=== PATIENT | female | born 1965 | race Caucasian/White ===

== ENCOUNTER → 2020-04-02 15:03 | Outpatient (CLI) | payer BC, SELFPAY ==
--- NOTE | ~2020-04-02 | MR_ITS ---
EXAMINATION: MR cervical spine wo con EXAM DATE: 04/02/2020 15:50 INDICATION: Cervical radiculopathy. Neck pain, bilateral arm pain, right arm numbness. States histo ry of fall in February 2019. TECHNIQUE: Multi-sequential, multiplanar MR images of the cervical spine were obtained without contra st. Axial T2, axial T2 MERGE sequence. Sagittal T1, T2, T2 fat saturation images also obtained. Com parison is made to prior examination from 11/10/2018. FINDINGS: Mild disc disease from C3 through C6. The vertebral bodies are aligned in the AP dimensio n. The spinal cord signal intensity and intrinsic morphology is normal. Cervicomedullary junction is normal in appearance. Hemangioma within the T4 vertebral body. There are no suspicious marrow signal abnormalities. Paraspinal soft tissue is unremarkable. Level by level evaluation: C2-C3: Disc does not extend beyond the endplate margin. Uncovertebral joint arthropathy: None. Facet joint arthropathy: Minimal. Neural foraminal stenosis: No stenosis. Central canal stenosis: No stenosis. C3-C4: There is a mild diffuse disc bulge. Uncovertebral joint arthropathy: Mild to moderate bilateral. Facet joint arthropathy: Mild to moderate bilateral. Neural foraminal stenosis: Mild bilateral. Central canal stenosis: Mild. C4-C5: There is a minimal diffuse disc bulge. Uncovertebral joint arthropathy: Mild bilateral. Facet joint arthropathy: Mild to moderate bilateral. Neural foraminal stenosis: No stenosis. Central canal stenosis: No stenosis. C5-C6: Disc does not extend beyond the endplate margin. Uncovertebral joint arthropathy: Minimal bilateral. Facet joint arthropathy: Moderate right, mild to moderate left. Neural foraminal stenosis: No stenosis. Central canal stenosis: No stenosis. C6-C7: Disc does not extend beyond the endplate margin. Uncovertebral joint arthropathy: Mild bilateral. Facet joint arthropathy: Mild to moderate bilateral. Neural foraminal stenosis: No stenosis. Central canal stenosis: No stenosis. C7-T1: Disc does not extend beyond the endplate margin. Uncovertebral joint arthropathy: None. Facet joint arthropathy: Mild to moderate left, mild right. Neural foraminal stenosis: No stenosis. Central canal stenosis: No stenosis. No appreciable interval change compared to prior study. IMPRESSION: 1. Overall mild cervical spondylosis unchanged. Reviewed, dictated and finalized at location B.
== END ==
PROVIDERS: PCP Family Medicine
DX: M47.22 Other spondylosis with radiculopathy, cervical region (principal)
CPT/HCPCS: 72141

== ENCOUNTER → 2020-08-25 15:11 | Outpatient (CLI) | payer BC, SELFPAY ==
--- NOTE | ~2020-08-25 | XR_ITS ---
XR lumbar spine 2-3V DATE: 08/25/2020 15:35 INDICATION: Low back pain TECHNIQUE: AP, lateral, coned lateral lumbosacral views COMPARISON: 03/28/2017 lumbar spine 07/23/2017 MRI lumbar spine FINDINGS: Diffuse osteopenia. Normal alignment of the lumbar spine. No fracture or bone destruction or spondylolisthesis. The inclu ded lower thoracic and lumbar pedicles are intact. Lumbar and lumbosacral interspaces are relatively preserved; there is minimal degenerative spurring a t L3-4. The sacroiliac joints appear normal. Abdominal aortic calcification. There is a prominent amount of fecal material within the colon. No bowel obstruction is evident. IMPRESSION: Diffuse osteopenia Minimal degenerative change the lumbar spine Reviewed, dictated and finalized at location B. NDS AND NURSERY SPECIALIST
--- NOTE | ~2020-08-25 | MM_ITS ---
EXAMINATION: MM screening [facility] BI w althea HISTORY: Screening mammogram TECHNIQUE: Craniocaudal and mediolateral oblique 3-D tomosynthesis images were obtained and synthetic 2-D images were generated. CAD analysis was submitted and interpreted. COMPARISON: 02/14/2018, 05/10/2014 BREAST PARENCHYMAL COMPOSITION: The breasts are heterogeneously dense, which may obscure small masses . FINDINGS: There is no evidence of suspicious mass, calcification, or architectural distortion to sugg est malignancy in either breast. There has been no suspicious interval change. IMPRESSION: 1. No mammographic evidence of malignancy. 2. Recommend routine screening mammography in one year. BI-RADS Category 1: Negative Reviewed, dictated and finalized at location A. LAY PLASTICIAN
== END ==
PROVIDERS: PCP Family Medicine; Visit Provider Physician Assistant
DX: Z12.31 Encounter for screening mammogram for malignant neoplasm of breast (principal); M54.5 Low back pain; M85.88 Other specified disorders of bone density and structure, other site
CPT/HCPCS: 72100; 77063; 77067

== ENCOUNTER → 2021-04-01 16:11 | Outpatient (CLI) | payer BC, SELFPAY ==
--- NOTE | ~2021-04-01 | XR_ITS ---
XR knee RT min 4V 04/01/2021 16:25 INDICATION: Right knee pain PROCEDURE: 4 views right knee COMPARISON: No prior studies for comparison. FINDINGS: Fracture, dislocation or subluxation is not identified. The soft tissues appear within norm al limits. No foreign bodies are identified. IMPRESSION: 1: NO ACUTE BONE OR JOINT ABNORMALITY IDENTIFIED. Reviewed, dictated and finalized at location B.
== END ==
PROVIDERS: PCP Family Medicine; Visit Provider Physician Assistant
DX: M25.561 Pain in right knee (principal)
CPT/HCPCS: 73564

== ENCOUNTER → 2021-06-27 11:58 | Outpatient (CLI) | payer BC, SELFPAY ==
--- NOTE | ~2021-06-27 | XR_ITS ---
XR hip RT min 3V w AP pelvis DATE: 06/27/2021 12:13 INDICATION: Right hip pain TECHNIQUE: AP, lateral views of right hip. AP pelvis. COMPARISON: None FINDINGS: No pelvic fracture or bone destruction. The pubic symphysis and sacroiliac joints are intac t. No fracture or dislocation, avascular necrosis or bone destruction of the right hip. Hip joint spaces are symmetric and relatively preserved. IMPRESSION: No significant abnormality Reviewed, dictated and finalized at location A. IMPRESSION: No significant abnormality
== END ==
PROVIDERS: PCP Family Medicine; Visit Provider Physician Assistant
DX: M25.551 Pain in right hip (principal)
CPT/HCPCS: 73502

== ENCOUNTER 2022-03-05 09:43 | Outpatient (CLI) | payer BC, SELFPAY ==
--- NOTE | ~2022-03-05 | CT_ITS ---
EXAMINATION: CT lung screening DATE: 03/05/2022 10:05 INDICATION: Z87.891 - Personal history of nicotine dependence TECHNIQUE: Computed tomography (CT) of the chest was performed without intravenous contrast. Addition al 3D reconstructions utilizing coronal maximum intensity projection (MIP) were performed. Automated exposure control and iterative reconstruction technique were employed. The dose-length product was 62 .53 mGy-cm. COMPARISON: None FINDINGS: The lungs are clear with no suspicious pulmonary nodules, pulmonary edema, pneumonia or pleural effus ion. Heart size is normal. Atherosclerotic coronary artery calcific location. No pericardial effusion . Thoracic aorta is normal in caliber. No pathologically enlarged thoracic lymphadenopathy. Visual is upper abdomen is unremarkable. Mild thoracic levocurvature with mild spondylosis. IMPRESSION: 1. Lung-RADS category 1: Negative. Continue annual screening with noncontrast low-dose chest CT in 12 months. Reviewed, dictated and finalized at location B. IMPRESSION: 1. Lung-RADS category 1: Negative. Continue annual screening with noncontrast l ow-dose chest CT in 12 months.
== END 2022-03-05 09:44 | disposition home or self-care (01) ==
PROVIDERS: PCP Family Medicine; Visit Provider Family Medicine
DX: Z12.2 Encounter for screening for malignant neoplasm of respiratory organs (principal); Z87.891 Personal history of nicotine dependence
CPT/HCPCS: 71271

== ENCOUNTER 2022-03-29 08:19 | Outpatient (CLI) | payer BC, SELFPAY ==
--- NOTE | ~2022-03-29 | MR_ITS ---
EXAMINATION: MR shoulder RT w con DATE: 03/29/2022 10:49 INDICATION: Right shoulder pain TECHNIQUE: Magnetic resonance imaging (MRI) of the right shoulder was performed following intra-owen cular gadolinium contrast injection and without intravenous contrast. Details of the glenohumeral salina nt injection have been dictated separately. Sequences included axial T2-weighted FS FSE, axial T1-we ighted FS FSE, coronal oblique T1-weighted FS FSE, coronal oblique T2-weighted FSE, sagittal T2-weigh kevin FS FSE, sagittal T1-weighted FSE, and ABER (abduction external rotation) T1-weighted FS FSE. COMPARISON: Right shoulder radiographs dated 08/14/2018 and MRI dated 12/22/1989 FINDINGS: Coracoacromial arch: The acromion undersurface is curved in morphology (type II). The coracoacromial ligament is normal. Mild acromioclavicular osteoarthritis. Rotator cuff: Mild supraspinatus and infraspinatus tendinopathy. Slight increase in the posterior extension of a sm all intrasubstance tear along the superior facet footplate of the supraspinatus tendon now extending more posteriorly to the anterior aspect of the middle facet footplate of the conjoined portion of the supraspinatus and infraspinatus tendons. The tear now measures approximately 10 mm AP but continues to involve no greater than one third of the tendon thickness. The teres minor tendon is normal. There is small amount of contrast imbibition in the supraspinatus tendon which is centered at the site of the joint injection without a discernible tear defect along the articular side of the tendon thicknes s is more likely related to contrast extravasation at the site of injection. Normal rotator cuff musc le bulk and signal. Biceps tendon, glenoid labrum and glenohumeral cartilage: Long head of the biceps tendon is intact. Diffuse suture anchors at the anteroinferior glenoid consis tent with interval repair of the previous noted tear which extended from the 3:00-5:30 position of th e anterior to anteroinferior glenoid labrum. No extension of the repaired tear although the anteroinf erior labrum no appears more thickened with amorphous signal suggesting progression of secondary dege neration. Glenohumeral cartilage remains normal. Bones and other: Slight progression of marrow edema and cystic change at the posterior aspect of the greater tuberosit y. Otherwise normal marrow signal with no fracture or pathologic marrow replacing process. Minimal fl uid in the subacromial/subdeltoid bursa consistent with mild bursitis. IMPRESSION: 1. Interval repair of the previously seen pair of the anterior to anteroinferior glenoid labrum with some progression of secondary degeneration of the anteroinferior labrum but no evident attachment of the repaired labrum or further extension along the circumference of the glenoid. 2. Mild supraspinatus and infraspinatus tendinopathy with small amount of more posterior progression of a still small mild intrasubstance tear of the supraspinatus and anterior most infraspinatus tendon . Reviewed, dictated and finalized at location B. IMPRESSION: 1. Interval repair of the previously seen pair of the anterior to anteroinferio r glenoid labrum with some progression of secondary degeneration of the anteroi nferior labrum but no evident attachment of the repaired labrum or further exte nsion along the circumference of the glenoid. 2. Mild supraspinatus and infraspinatus tendinopathy with small amount of more posterior progression of a still small mild intrasubstance tear of the supraspi natus and anterior most infraspinatus tendon.
--- NOTE | ~2022-03-29 | XR_ITS ---
EXAMINATION: XR fl inj shoulder LT - MR/CT DATE: 03/29/2022 09:41 INDICATION: Left shoulder pain. TECHNIQUE: A time-out was performed to verify the patient's name, date of , and procedure to b e performed. The procedure including the risks, benefits, and alternatives was discussed with the pat ient. Risks discussed included bleeding and infection. The patient understood the risks and agreed to proceed. The skin overlying the left glenohumeral joint was prepped and draped in usual sterile fash ion. Anesthetic was administered with 1% lidocaine subcutaneously. A 22 G needle was advanced under fluoroscopic guidance into the joint. Subsequently, injectate consisting of 12 mL of 1:200 Multihan ce, 1:4 1% lidocaine, and 1:4 Omnipaque 240 was instilled. The needle was removed and the entry site was cleaned and dressed. There were no immediate complications. Fluoroscopy exposure time was 0.1 m inutes. The total number of images was 3. FINDINGS: Real-time fluoroscopy demonstrates the needle and contrast in the left glenohumeral joint. IMPRESSION: 1. Successful left glenohumeral joint injection of contrast for subsequent MR arthrography. Reviewed, dictated and finalized at location A. IMPRESSION: 1. Successful left glenohumeral joint injection of contrast for subsequent MR a rthrography.
--- NOTE | ~2022-03-29 | MR_ITS ---
EXAMINATION: MR shoulder LT w con DATE: 03/29/2022 10:49 INDICATION: Left shoulder pain TECHNIQUE: Magnetic resonance imaging (MRI) of the left shoulder was performed following intra-artic ular gadolinium contrast injection and without intravenous contrast. Details of the glenohumeral join t injection have been dictated separately. Sequences included axial T2-weighted FS FSE, axial T1-juan ghted FS FSE, coronal oblique T1-weighted FS FSE, coronal oblique T2-weighted FSE, sagittal T2-weight ed FS FSE, sagittal T1-weighted FSE, and ABER (abduction external rotation) T1-weighted FS FSE. COMPARISON: None. FINDINGS: Coracoacromial arch: The acromion undersurface is curved in morphology (type II). The coracoacromial ligament is normal. M ild acromioclavicular osteoarthritis. Rotator cuff: Mild supraspinatus and subscapularis tendinopathy without discrete tear. The infraspinatus and teres minor tendons are normal. Normal rotator cuff muscle bulk and signal. Biceps tendon, glenoid labrum and glenohumeral cartilage: Long head of the biceps tendon is intact. There is a tear of the 3:30-5:00 position of the anteroinfe rior glenoid labrum. Glenohumeral cartilage is normal. Bones and other: Normal marrow signal with no edema, fracture or pathologic marrow replacing process. Mild increased f luid signal in the subacromial/subdeltoid bursa consistent with mild bursitis. IMPRESSION: 1. Tear of the anteroinferior glenoid labrum. 2. Mild supraspinatus and subscapularis tendinopathy without discrete tear. 2. Mild subacromial/subdeltoid bursitis. Reviewed, dictated and finalized at location B.
--- NOTE | ~2022-03-29 | XR_ITS ---
EXAMINATION: XR fl inj shoulder RT - MR/CT DATE: 03/29/2022 09:38 INDICATION: Right shoulder pain. History of labral repair. TECHNIQUE: A time-out was performed to verify the patient's name, date of , and procedure to b e performed. The procedure including the risks, benefits, and alternatives was discussed with the pat ient. Risks discussed included bleeding and infection. The patient understood the risks and agreed to proceed. The skin overlying the right glenohumeral joint was prepped and draped in usual sterile fas hion. Anesthetic was administered with 1% lidocaine subcutaneously. A 22 G needle was advanced unde r fluoroscopic guidance into the joint. Subsequently, injectate consisting of 9 mL of 1:200 Multihan ce, 1:4 1% lidocaine, and 1:4 Omnipaque 240 was instilled. The needle was removed and the entry site was cleaned and dressed. There were no immediate complications. Fluoroscopy exposure time was 0.1 m inutes. The total number of images was 3. FINDINGS: Real-time fluoroscopy demonstrates the needle and contrast in the right glenohumeral joint. IMPRESSION: 1. Successful right glenohumeral joint injection of contrast for subsequent MR arthrography. Reviewed, dictated and finalized at location A.
== END 2022-03-29 08:20 | disposition home or self-care (01) ==
PROVIDERS: PCP Family Medicine; Visit Provider Orthopaedic Surgery Hand Surgery
DX: M25.511 Pain in right shoulder (principal); M19.012 Primary osteoarthritis, left shoulder; M75.52 Bursitis of left shoulder
CPT/HCPCS: 23350; 73222; 77002; A9577

== ENCOUNTER 2022-06-11 10:39 | Outpatient (CLI) | payer BC, SELFPAY ==
--- NOTE | 2022-06-11 10:59 | ECG_ITS ---
Measurements Intervals Plover Rate: 74 P: 77 GA: 128 QRS: 77 QRSD: 88 T: 60 QT: 397 QTc: 441 Interpretive Statements SINUS RHYTHM NORMAL ECG COMPARED TO ECG 02/08/2019 14:53:35 NO SIGNIFICANT CHANGES Electronically Signed On 06-11-2022 11:59:47 CDT by Misha Jarrett D.O.
== END 2022-06-11 10:40 | disposition home or self-care (01) ==
PROVIDERS: PCP Family Medicine; Visit Provider Orthopaedic Surgery
DX: M75.111 Incomplete rotator cuff tear or rupture of right shoulder, not specified as traumatic (principal); Z01.818 Encounter for other preprocedural examination
CPT/HCPCS: 93005

== ENCOUNTER 2022-06-15 01:15 | Day surgery (SDC) | payer BC, SELFPAY ==
[2022-06-04 14:46] VITALS: BMI 23.5
--- NOTE | 2022-06-04 14:53 | PC.NURSE ---
Report to the Outpatient Waiting Room, entrance under the green pavilion located off [facility], at time 0600 _ on date _06/15/22_. OR Time: _07. - You and your visitor will be asked to self-screen and do not enter if you have any COVID symptoms. - Only one visitor and NO children visitors are allowed at this time. - The patient visitor is requested to leave or wait in car when not with patient due to restrictions. - A mask is required within the hospital. Patients may have clear liquids (water, carbonated beverages, clear teas, apple juice) until 3 hours prior to surgery with a maximum of 20 ounces. - No food from midnight until time of surgery - Infants may have breast milk until 4 hours before surgery, formula 6 hours prior to surgery. - Children will be allowed to drink immediately following surgery. If applicable, please bring a bottle or sippy cup to assist with drinking. Juice, water, soda, and popsicles are readily available. For infants on formula, please bring formula the day of surgery. Pacifiers are allowed. Take the following medications with a SIP of water the morning of surgery: BUPROPION, ESCITALOPRAM Medications to discontinue per physician VIT/ SUPPLIMENTS Date to take last dose 06/12/22 Please no make-up, nail filipino, hairspray, perfume, deodorant, or body powder the day of surgery. No jewelry (including any body piercings) or valuables the day of surgery, leave them at home. Please take a shower or bath the night before, or the morning of, surgery with an antibacterial soap. Wear comfortable, loose fitting clothing. Children are encouraged to wear pajamas. - Jewelry must be removed prior to entering the operating room. Rings and piercings that are not removed may be cut off. - The hospital will not accept responsibility for valuables. - Please leave all valuables, including medications, at home the day of surgery. If you are going home after surgery, a licensed cdl team truck driver must drive you home. - NO public transportation without another adult. - We recommend that an adult stay with you for 24 hours following discharge. - We also recommend that you do not drive, make important decision, drink alcoholic beverages, or take any drugs that were not prescribed by your health care provider for at least 24 hours after your discharge time. For Pediatric surgeries, we recommend two adults accompany the child home (only one inside the building at this time). Follow any additional instructions given to you from your surgeon. If you or anyone in your household have experienced Covid symptoms in the past week, please notify your surgeon or the nurse liaison at the phone number below for possible testing. Telephone instructions given to ___PATIENT_and asked if any additional questions and then verbalized understanding. Patient advised to call surgeon office or pre surgery nurse liaison [phone] if any additional questions.
[2022-06-15] VITALS (8 sets, daily range): BP systolic 137–151; BP diastolic 75–111; PULSE 62–73; RESP 10–20; TEMP 36.3–36.5; O2SAT 96–100
[2022-06-15] MEDS: ACETAMINOPHEN 500 MG TABLET 1000 MG PO (06:46)
[2022-06-15] MEDS: LACTATED RINGERS 1,000 ML 30 ML IV CONT ×2 (06:50→09:18)
[2022-06-15] MEDS: KETOROLAC 15 MG/ML VIAL (*BKC) IV PUSH (06:54)
--- NOTE | 2022-06-15 07:01 | WPDANESEPPF ---
Anes - Initial Pre Proc Eval Procedure: Operation Date: 06/15/22 07:30 Proposed Procedures p Arthroscopic Rotator Cuff Repair Right Shoulder, Subacromial Decompression - Vna Zarate MD Date/Time: 06/15/22 07:01 Surgeon: Van Zarate MD Pre Op Diagnosis: part rotator cuff tear right shoulder w tendonitis Patient Data Age: 56 Gender: F Height: 1.68 m Weight: 66 kg Allergies Allergy/AdvReac Type Severity Reaction Status Date / Time insect venom Allergy Unknown Anaphylactic Verified 06/07/22 10:28 Shock gabapentin AdvReac Unknown vision loss Verified 06/15/22 06:39 Home Medications Medication Instructions Recorded Confirmed Type cholecalciferol (vitamin D3) 25 1,000 unit PO DAILY 11/15/19 06/15/22 History mcg (1,000 unit) capsule suvorexant 20 mg tablet (Belsomra) 20 mg PO ONCE #1 tablet 08/13/20 06/15/22 Rx diclofenac sodium 1 % topical gel 2 g topical QID #100 grams 06/26/21 06/07/22 Rx epinephrine 0.3 mg/0.3 mL 0.3 mg (0.3 mL) IM ONCE PRN 01/18/22 06/07/22 Rx injection, auto-injector (EpiPen) anaphylaxis #2 ea sumatriptan succinate 100 mg See Rx Instructions PO .COMPLEX #9 03/22/22 06/15/22 Rx tablet (Imitrex) tabs buspirone 5 mg tablet 5 mg PO BID #180 tabs 05/24/22 06/15/22 Rx escitalopram oxalate 10 mg tablet 10 mg PO DAILY #90 tabs 05/24/22 06/15/22 Rx (Lexapro) melatonin 1 mg tablet 1 mg PO HS 06/04/22 06/15/22 History Patient hx anesthesia problems: none Family hx anesthesia problems: none Results Review: All pre-operative results and documents have been reviewed as part of the pre-operative evaluation. [facility] Past Medical History Medical History Anxiety Migraine, unspecified, not intractable, without status migrainosus Trigger finger, right little finger Ulnar neuropathy at elbow of right upper extremity Surgical History Surgical History History of hysterectomy Status post labral repair of shoulder Family History Family History Father Diabetes mellitus Carcinoma of colon Family history of coronary artery disease Family history of congenital heart disease Cerebrovascular accident Mother Diabetes mellitus Family history of coronary artery disease Family history of osteoporosis Cerebrovascular accident Family history of arthritis Sibling Family history of coronary artery disease Social History Social History Social History: Smoking packs per day: 1 Smoking cigarettes per day: 20.0 Years smoked: 30 Smoking pack-years: 30.00 Smoking status: Former smoker Tobacco type: cigarettes and e-cigarettes/vaping Second hand tobacco smoke exposure: No Smoking end date: 10/10/12 Additional smoking assessment comments: Pt has been vaping Alcohol intake: never Alcohol use details: 6 PER YEAR Substance use: never Substance use type: does not use Living arrangements: alone Gender identity (if verbalized by the patient): Female Sexual Orientation (if Verbalized by the Patient): Straight or Heterosexual Anes - Eval Final PreProcedure Day of Procedure 06/15/22 07:01 Patient weight: normal Heart: regular rate and rhythm Lungs: clear to auscultation Airway: Mallampati scale class II Neurological: alert and oriented Last oral intake: >/= 8 hours ASA classification: II Emergent: no Anesthetic plan: proceed Anesthesia type and monitoring: general ETT and standard monitoring Results Review: All pre-operative results and documents have been reviewed as part of the pre-operative evaluation. Informed Consent: The patient's anesthetic plan and its attendant risks and benefits were discussed with the patient/family/POA. Questions were solicited and answers provided to the satisfaction
--- NOTE | 2022-06-15 07:08 | WPDHPUPDATE1 ---
History and Physical Update Update Date/Time: 06/15/22 07:08 History and Physical has been reviewed, including an updated exam of the patient. There are NO changes in the patient's condition. Risks, benefits, and alternatives have been discussed and questions answered. Patient agrees to proceed with procedure.
[2022-06-15] MEDS: SCOPOLAMINE 1.5 MG PATCH TRANSDERM (07:20)
[2022-06-15] MEDS: ceFAZolin 2 GM/D5W 50 ML 2 GM/50 ML BAG IVPB (07:29)
--- NOTE | 2022-06-15 07:49 | WPDANESPNB ---
Anes - Peripheral Nerve Block Date/Time: 06/15/22 07:49 I have discussed with the patient/family/POA the placement of a peripheral nerve block for post-operative pain management, including associated risks, benefits, complications, and side effects. Alternative methods of post-operative analgesia were detailed. Questions were solicited and answers provided to the satisfaction of the patient/family/POA. Time-Out: A pre-procedural Time-Out was completed immediately before starting the procedure and confirmed: Patient Identification, Site, Procedure, Patient Position and the Availability of Requisite Equipment. Clinical Indications: Acute post-operative pain management requested by the operative surgeon. Nerve Block Insertion Note Anes-nerve block: interscalene Patient position: other (sitting) Skin prep: chlorhexidine Needle: 22 gauge, stimulating, insulated echogenic needle. Needle length: 50 mm Technique: nerve stimulation lost at (mA) (0.21) and ultrasound Technique comment: mid2mg [id number] Injectate: bupivacaine 0.5% with epi 5 mcg/ml (30ml no epi) and dexamethasone (mg) (4) Observations: tolerated well Complications: none Procedure start time:: 720 Procedure end time:: 727
--- NOTE | 2022-06-15 09:08 | W.PM.PROC2 ---
Procedure Note - Detailed Date of Procedure 06/15/22 Pre-op Diagnosis Partial-thickness rotator cuff tear right shoulder. Post-op Diagnosis Same Procedure Performed 1. Arthroscopic rotator cuff repair right shoulder 2. Arthroscopic subacromial decompression Surgeon Van Zarate MD Anesthesia General Indications Persistent pain. MRI showed expanding intrasubstance tear of the supraspinatus as well as low-grade articular tearing. Labral changes from prior labral repair. Findings The previous anterior labrum appeared well healed and normal. Minimal fraying of the superior and posterior superior labrum. Surgical changes in the inferior capsule. No observable instability. Articular cartilage normal. Biceps anchor stable. Visualized biceps tendon entirely normal. Subscapularis minimal upper border changes without any definite tearing. Low-grade articular tearing of the supraspinatus less than 15%. Bursal side showed some mild fraying and significant softening of the tendon. Consistent with the intrasubstance tearing and tendinosis. Repair was accomplished with the large size Regeneten graft with BOBBY soft tissue anchors and peek bone anchors. Description of Procedure Preoperative antibiotics were given. An interscalene block was administered in the preoperative area. The patient was bought brought to the operating room. A general anesthetic was administered. The patient was carefully positioned in the beach chair position. The head and neck were carefully positioned. The non operative extremity was also carefully positioned. The shoulder was prepped and draped in the usual sterile fashion. Examination was performed. Standard posterior and anterior arthroscopic portals were established. Inflow achieved with the arthroscopic pump using saline and epinephrine. The glenohumeral joint was carefully inspected. The articular cartilage was normal. Low-grade, less than 15% supraspinatus tearing noted. Hyperemia of the rotator cuff noted. Minimal degenerative fraying of the superior labrum and posterior superior labrum. The anterior-inferior labrum in fact appeared healed. One suture was subtly visible. There were some postoperative changes along the inferior axillary pouch area. No instability suggested. Subscapularis was essentially normal other than minimal fraying superiorly. Attention was turned to the subacromial space. Bursa was not particularly inflamed. There was some scarring is consistent with prior surgery for the Bankart repair. An acromioplasty was performed. The rotator cuff itself showed mild fraying superiorly but definite observable softness to the supraspinatus. The footprint attachment appeared normal from the bursal view. Given the expanding intrasubstance tearing, early low-grade tear pain and tendinosis, it was elected to repair the rotator cuff and augment with the Regeneten graft. Five BOBBY anchors were placed into the tendon securing it very nicely. Two peek anchors were placed into the bone laterally. Good coverage with the large graft. Care taken to avoid the biceps by marking the anterior border of the cuff previously with the spinal needle. The arthroscopic instruments were removed. The wounds were closed with 3-0 Monocryl subcuticular suture and steri strips. There were no complications. A sling was applied and the patient brought to the recovery room. Implants Collins and nephew: Five BOBBY anchors soft tissue tendon anchors. Two peek bone anchors. Regeneten tissue graft, large. Estimated Blood Loss 5 Pathology None sent Complications No immediate complications Condition Stable Disposition PACU [facility] Billing Surgery - Charge Forward: Surgery Billing
[2022-06-15] MEDS: oxyCODONE HCL (*CRX) 5 MG TAB IR PO (10:30)
== END 2022-06-15 11:15 | disposition home or self-care (01) ==
PROVIDERS: PCP Family Medicine; Visit Provider Orthopaedic Surgery
PROC: (CPT 29805; principal; 2022-06-15 07:30)
DX: M75.111 Incomplete rotator cuff tear or rupture of right shoulder, not specified as traumatic (principal); M75.82 Other shoulder lesions, left shoulder; M24.119 Other articular cartilage disorders, unspecified shoulder; G89.18 Other acute postprocedural pain; F41.9 Anxiety disorder, unspecified; F17.290 Nicotine dependence, other tobacco product, uncomplicated
CPT/HCPCS: 29827; 29826; 64415; A4565; A9270; C1713; J0690; J1100; J1885; J2250; J2370; J2405; J2704; J2710; J3010; J3370; J7120

== ENCOUNTER 2022-06-21 10:01 | Outpatient (RCR) | payer BC, SELFPAY ==
--- NOTE | 2022-06-21 11:18 | PTOPEVAL1 ---
Evaluation Information Assessment Status Evaluation Diagnosis R rotator cuff repair Onset 06/15/2022 Subjective Information Pt reports that her R shoulder pain started when cleaning a house. She tripped down a step and hurt her R shoulder but also hurt her L shoulder. She notes that she has to do a lot of repetitive work for her job. She had a rotator cuff repair on 2021. She has also had a labrum surgery in her R in February of 2019. Her pain is increased today and she has taken pain medications. She reports that she has slowly been weaning into her normal household activities including grooming and bathing but has been progressing slowly and carefully. She has been sleeping with her sling on because she sleeps on her R side. Reported Pain Level Pain Score 5: Self Report Assessment PT Clinical Summary Pt presents to PT s/p R rotator cuff repair on 06/15 with pain and demonstrates decreased range of motion and decreased strength. 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 She was provided with an HEP focused on improving mobility and strength within her protocol and she tolerated these exercises well. She will benefit from skilled PT to facilitate symptom relief, improve the aforementioned impairments, and return to functional and recreational activities. Plan of Care Interventions Electrical Stimulation,Hot Pack/Cold Pack,Manual Therapy,Patient/Caregiver Educati,Therapeutic Activities,Therapeutic Exercise PT Services Indicated Yes Treatment Frequency and 2-3x week for 12 visits Duration These treatments will address the objective and functional deficits as defined above. The patient will be advanced safely and appropriately in order for the patient to progress towards his/her prior level of function. Additional exercises will be introduced and as well as a comprehensive home exercise program upon discharge, if needed, ?to ensure carryover of functional gains achieved in the clinic. This treatment plan has been reviewed and agreement upon by the patient.
--- NOTE | 2022-07-23 12:11 | PTOPPROG ---
Assessment and note entered by Adwoa Pedroza DPT Evaluation Information Assessment Status Progress Diagnosis R rotator cuff repair Onset 06/15/2022 Subjective Information Pt reports continued stiffness and tightness in her shoulder. She notes constant pressure in her shoulder as well. Pt has a follow-up appointment with her MD on Tuesday. Assessment PT Clinical Summary Pt presents to physical therapy s/p R rotator cuff repair on 06/15/2022. While she still is limited in strength and range of motion in abduction, she has demonstrated significant improvements in ROM since her initial evaluation, especially with flexion and ER. She will benefit from additional skilled PT to further improve ROM and strength as needed for returning to functional and recreational activities. Plan of Care Interventions Electrical Stimulation,Hot Pack/Cold Pack,Manual Therapy,Patient/Caregiver Educati,Therapeutic Activities,Therapeutic Exercise PT Services Indicated Yes Treatment Frequency and 2x week for 8 visits Duration These treatments will address the objective and functional deficits as defined above. The patient will be advanced safely and appropriately in order for the patient to progress towards his/her prior level of function. Additional exercises will be introduced and as well as a comprehensive home exercise program upon discharge, if needed, ?to ensure carryover of functional gains achieved in the clinic. This treatment plan has been reviewed and agreement upon by the patient.
--- NOTE | 2022-09-09 12:06 | PTOPPROG ---
Assessment and note entered by Adwoa Pedroza DPT Evaluation Information Assessment Status Progress Diagnosis R rotator cuff repair Onset 06/15/2022 Subjective Information Pt reports that her R shoulder still feels quite stiff and tight. She also has some pulling in her R neck. She notes continued difficulty with lifting up weights. Her last appointment with her MD was about 2 weeks ago. Her next follow-up is scheduled for 09/24. Assessment PT Clinical Summary Pt presents to skilled PT with significant improvements in strength and range of motion since her last evaluation. She is still limited in functional strength especially in flexion, ER, and abd and has difficulty with lifting activities at home. She will benefit from additional skilled PT to further facilitate symptom relief, improve the aforementioned impairments, and return to functional and recreational activties. Plan of Care PT Services Indicated Yes Treatment Frequency and 1x week for 6 visits Duration These treatments will address the objective and functional deficits as defined above. The patient will be advanced safely and appropriately in order for the patient to progress towards his/her prior level of function. Additional exercises will be introduced and as well as a comprehensive home exercise program upon discharge, if needed, ?to ensure carryover of functional gains achieved in the clinic. This treatment plan has been reviewed and agreement upon by the patient.
== END 2022-10-05 23:59 | disposition home or self-care (01) ==
LOC: CHSPT 10:01
PROVIDERS: PCP Family Medicine; Visit Provider Orthopaedic Surgery
DX: Z48.89 Encounter for other specified surgical aftercare (principal); M75.111 Incomplete rotator cuff tear or rupture of right shoulder, not specified as traumatic
CPT/HCPCS: 97014; 97110; 97140; 97161; 97530; G0283

== ENCOUNTER 2022-08-18 12:03 | Outpatient (CLI) | payer BC, SELFPAY ==
[2022-08-18 12:26] LABS: Appearance Urine Clear (Clear); Basophils Absolute Auto 0.04 K/mm3 (0.00-0.10); Basophils Percent Auto 0.8 % (0.0-1.0); Bilirubin Urine Negative (Negative); Blood Urine Negative (Negative); Eosinophils Absolute Auto 0.21 K/mm3 (0.02-0.50); Eosinophils Percent Auto 4.1 % (1.0-6.0); Glucose Urine UA Negative (Negative); Hematocrit 41.7 % (35.0-49.0); Hemoglobin 13.9 g/dL (12.0-15.0); Immature Granulocyte Absolute 0.02 K/mm3 (0.00-0.00); Immature Granulocyte Percent A 0.4 % (0.0-0.0); Ketones Urine Negative (Negative); Leukocyte Esterase Ur Trace (Negative); Mean Corpuscular HGB Conc 33.3 g/dL (32.0-36.0); Mean Corpuscular Hemoglobin 31.1 pg (27.0-31.0); Mean Corpuscular Volume 93.3 fL (78.0-102.0); Mean Platelet Volume 11.5 fl (9.2-11.8); Monocytes Absolute Auto 0.57 K/mm3 (0.10-0.90); Neutrophils Absolute Auto 2.9 K/mm3 (1.7-7.2); Neutrophils Percent Auto 56.7 % (50.0-70.0); Nitrate Urine Negative (Negative); Platelet Count Result 222 K/mm3 (150-420); Protein Urine Negative (Negative); Red Blood Count 4.47 M/mm3 (4.20-5.40); Specific Grav Ur 1.015 (1.010-1.020); Urobilinogen Urine 0.2 mg/dL (0.2-1.0); White Blood Count 5.2 K/mm3 (4.8-10.8); pH Urine 7.5 (5.0-8.0)
[2022-08-18 12:31] LABS: Add Urine Microscopic? YES; Color Urine Light Yellow (Yellow); RBC Urine None seen /hpf (0-2); Squamous Epithelial Cell Urine Few /hpf (Few); WBC Urine 0-3 /hpf (0-3)
[2022-08-18 12:32] LABS: Bacteria Urine Trace /hpf
[2022-08-18 12:55] LABS: Hemoglobin A1C 5.6 % (<5.7)
[2022-08-18 13:28] LABS: Alanine Aminotransferase 109 U/L (14-59); Albumin Level 3.9 g/dL (3.4-5.0); Alkaline Phosphatase 101 U/L (46-116); Anion Gap 6 mmol/L (8-16); Aspartate Amino Transferase 52 U/L (15-37); Bilirubin,Total 0.3 mg/dL (0.00-1.00); Blood Urea Nitrogen 25 mg/dL (7-18); Calcium 9.4 mg/dL (8.5-10.1); Carbon Dioxide 29 mmol/L (21-32); Chloride 109 mmol/L (98-108); Cholesterol 226 mg/dL (0-200); Estimated Glomerular Filt Rate > 60; Glucose 86 mg/dL (70-99); HDL Direct 77 mg/dL (40-60); LDL Cholesterol Calculated 138 mg/dL (<130); Osmolality Calculated 301 mOsm/kg (285-295); Potassium 4.6 mmol/L (3.5-5.1); Sodium 144 mmol/L (136-145); Thyroid Stimulating Hormone 1.34 uIU/mL (0.36-3.74); Total Protein 7.4 g/dL (6.4-8.2); Triglycerides 55 mg/dL (0-150)
[2022-08-21 21:49] LABS: Vitamin D 25 Hydroxy 33 ng/mL (30-100)
== END 2022-08-18 12:04 | disposition home or self-care (01) ==
LOC: CHSLAB 12:06
PROVIDERS: PCP Family Medicine; Visit Provider Physician Assistant
DX: Z00.00 Encounter for general adult medical examination without abnormal findings (principal); F41.1 Generalized anxiety disorder; F51.04 Psychophysiologic insomnia; R73.01 Impaired fasting glucose; E78.00 Pure hypercholesterolemia, unspecified; E55.9 Vitamin D deficiency, unspecified
CPT/HCPCS: 36415; 80053; 80061; 81001; 82306; 83036; 84443; 85025

== ENCOUNTER 2022-10-06 12:05 | Outpatient (CLI) | payer BC, SELFPAY ==
[2022-10-06 12:53] LABS: Alanine Aminotransferase 24 U/L (14-59); Alkaline Phosphatase 80 U/L (46-116); Anion Gap 10 mmol/L (8-16); Aspartate Amino Transferase 17 U/L (15-37); Bilirubin,Total 0.6 mg/dL (0.00-1.00); Blood Urea Nitrogen 21 mg/dL (7-18); Calcium 9.3 mg/dL (8.5-10.1); Carbon Dioxide 27 mmol/L (21-32); Chloride 105 mmol/L (98-108); Estimated Glomerular Filt Rate > 60; Glucose 90 mg/dL (70-99); Osmolality Calculated 297 mOsm/kg (285-295); Potassium 4.1 mmol/L (3.5-5.1); Sodium 142 mmol/L (136-145); Total Protein 7.6 g/dL (6.4-8.2)
== END 2022-10-06 12:06 | disposition home or self-care (01) ==
LOC: CHSLAB 12:08
PROVIDERS: PCP Family Medicine; Visit Provider Physician Assistant
DX: R79.89 Other specified abnormal findings of blood chemistry (principal)
CPT/HCPCS: 36415; 80053

== ENCOUNTER 2022-11-26 15:50 | Outpatient (CLI) | payer BC, SELFPAY ==
--- NOTE | ~2022-11-26 | XR_ITS ---
XR lumbar spine 2-3V DATE: 11/26/2022 16:24 INDICATION: Low back pain TECHNIQUE: AP, lateral, coned lateral lumbosacral views COMPARISON: 08/25/2020 lumbar spine FINDINGS: Normal alignment of the lumbar spine. No fracture or bone destruction or spondylolisthesis. Included lower thoracic and lumbar pedicles are intact. Mild to moderate degenerative disease primarily at L1-2 and L3-4. The sacroiliac joints are intact. Prominent atherosclerotic calcified plaque of the abdominal aorta. IMPRESSION: Mild degenerative change Reviewed, dictated and finalized at location A. OPRACTIC DOCTOR IMPRESSION: Mild degenerative change
--- NOTE | ~2022-11-26 | XR_ITS ---
XR hip BI 2V w AP pelvis DATE: 11/26/2022 16:24 INDICATION: Hip pain TECHNIQUE: AP pelvis. AP and lateral views of each hip. COMPARISON: 06/27/2021 pelvis and right hip FINDINGS: No pelvic fracture or bone destruction. The pubic symphysis and sacroiliac joints are intac t. Hip joint spaces are symmetric and relatively preserved. IMPRESSION: No significant abnormality Reviewed, dictated and finalized at location A. STUD RIVETER IMPRESSION: No significant abnormality
--- NOTE | ~2022-11-26 | XR_ITS ---
XR_CERV2-3V_CR DATE: 11/26/2022 16:24 INDICATION: Neck pain TECHNIQUE: AP, open-mouth and lateral views COMPARISON: None FINDINGS: Normal alignment of the cervical spine. C1 and C2 are normally aligned and the odontoid pro cess is intact. No fracture or dislocation or locked facet or prevertebral soft tissue swelling. Mild loss of interspace height and slight anterolisthesis at C5-6. There is evidence of degenerative change at the apophyseal and uncal vertebral joints in the mid and lower cervical spine. IMPRESSION: Mild cervical spondylosis Reviewed, dictated and finalized at Location A. Reviewed, dictated and finalized at location A. TICAL ADVISOR IMPRESSION: Mild cervical spondylosis
--- NOTE | ~2022-11-26 | XR_ITS ---
XR knee RT min 4V, XR knee LT min 4V 11/26/2022 16:24 INDICATION: Bilateral knee pain PROCEDURE: 4 views each knee COMPARISON: 04/01/2021 FINDINGS: Fracture, dislocation or subluxation is not identified. No significant joint effusion. Ther e is anatomic alignment. The soft tissues appear within normal limits. No foreign bodies are identif ied. IMPRESSION: 1: NO ACUTE BONE OR JOINT ABNORMALITY IDENTIFIED. Reviewed, dictated and finalized at location A. TATION LEAD IMPRESSION: 1: NO ACUTE BONE OR JOINT ABNORMALITY IDENTIFIED.
== END 2022-11-26 15:51 | disposition home or self-care (01) ==
LOC: ANHIMG 15:55
PROVIDERS: PCP Family Medicine; Visit Provider Physician Assistant
DX: M25.559 Pain in unspecified hip (principal); M25.569 Pain in unspecified knee; M54.50 Low back pain, unspecified; M47.892 Other spondylosis, cervical region; M51.36 Other intervertebral disc degeneration, lumbar region
CPT/HCPCS: 72040; 72100; 73521; 73564

== ENCOUNTER 2023-06-30 16:05 | Outpatient (CLI) | payer BC, SELFPAY ==
--- NOTE | ~2023-06-30 | CT_ITS ---
CT Scan of the Chest without Contrast: Clinical Indication: Smoking history, lung cancer screening Technique: Contiguous sections were acquired throughout the chest without intravenous contrast. Dose reduction technique was used on this scan by utilizing automated exposure control and iterative recon struction technique. The dose-length product (DLP) was 70.08 mGy-cm. COMPARISON: 03/05/2022 Findings: There is no evidence of any significant mediastinal, hilar or axillary lymphadenopathy. Coronary rossana ry calcifications are noted. There is no evidence of pleural or pericardial effusion. The lungs are clear. No pulmonary nodules or infiltrates are noted. Images through the upper abdomen reveal stable small low-density left adrenal nodule. Impression: Lung RADS 1: Negative. 12 month follow-up screening CT advised. Reviewed, dictated and finalized at location . Impression: Lung RADS 1: Negative. 12 month follow-up screening CT advised.
== END 2023-06-30 16:06 | disposition home or self-care (01) ==
PROVIDERS: PCP Family Medicine; Visit Provider Physician Assistant
DX: Z12.2 Encounter for screening for malignant neoplasm of respiratory organs (principal); Z87.891 Personal history of nicotine dependence
CPT/HCPCS: 71271

== ENCOUNTER 2023-08-22 09:40 | Outpatient (CLI) | payer BC, SELFPAY ==
[2023-08-22 09:58] LABS: Basophils Absolute Auto 0.04 K/mm3 (0.00-0.10); Basophils Percent Auto 0.7 % (0.0-1.0); Eosinophils Absolute Auto 0.19 K/mm3 (0.02-0.50); Eosinophils Percent Auto 3.2 % (1.0-6.0); Hematocrit 35.7 % (35.0-49.0); Hemoglobin 10.8 g/dL (12.0-15.0); Immature Granulocyte Absolute 0.02 K/mm3 (0.00-0.00); Immature Granulocyte Percent A 0.3 % (0.0-0.0); Lymphocytes Absolute Auto 1.47 K/mm3 (1.10-4.50); Lymphocytes Percent Auto 24.5 % (18.0-42.0); Mean Corpuscular HGB Conc 30.3 g/dL (32.0-36.0); Mean Corpuscular Hemoglobin 23.7 pg (27.0-31.0); Mean Corpuscular Volume 78.3 fL (78.0-102.0); Mean Platelet Volume 11.4 fl (9.2-11.8); Monocytes Absolute Auto 0.57 K/mm3 (0.10-0.90); Monocytes Percent Auto 9.5 % (2.0-11.0); Neutrophils Absolute Auto 3.7 K/mm3 (1.7-7.2); Neutrophils Percent Auto 61.8 % (50.0-70.0); Platelet Count Result 267 K/mm3 (150-420); Red Blood Count 4.56 M/mm3 (4.20-5.40); Red Cell Distribution Width 16.9 % (11.6-14.4)
[2023-08-22 09:59] LABS: Appearance Urine Clear (Clear); Bilirubin Urine Negative (Negative); Blood Urine Trace-Intact (Negative); Color Urine Yellow (Yellow); Glucose Urine UA Negative (Negative); Ketones Urine Negative (Negative); Leukocyte Esterase Ur Negative (Negative); Nitrate Urine Negative (Negative); Protein Urine Negative (Negative); Specific Grav Ur >= 1.030 (1.010-1.020); Urobilinogen Urine 0.2 mg/dL (0.2-1.0)
[2023-08-22 10:06] LABS: Add Urine Microscopic? YES; RBC Urine None seen /hpf (0-2); Squamous Epithelial Cell Urine Few /hpf (Few); WBC Urine None seen /hpf (0-3)
[2023-08-22 10:07] LABS: Bacteria Urine Trace /hpf; Mucus Urine Heavy /lpf
[2023-08-22 11:04] LABS: Alanine Aminotransferase 27 U/L (14-59); Albumin Level 3.6 g/dL (3.4-5.0); Alkaline Phosphatase 112 U/L (46-116); Anion Gap 10 mmol/L (8-16); Aspartate Amino Transferase 17 U/L (15-37); Bilirubin,Total 0.3 mg/dL (0.00-1.00); Blood Urea Nitrogen 28 mg/dL (7-18); Calcium 9.1 mg/dL (8.5-10.1); Carbon Dioxide 27 mmol/L (21-32); Chloride 106 mmol/L (98-108); Cholesterol 224 mg/dL (0-200); Estimated Glomerular Filt Rate > 60; Folic Acid 17.2 ng/mL (8.6->20); Glucose 100 mg/dL (70-99); HDL Direct 69 mg/dL (40-60); LDL Cholesterol Calculated 148 mg/dL (<130); Osmolality Calculated 301 mOsm/kg (285-295); Potassium 4.3 mmol/L (3.5-5.1); Sodium 143 mmol/L (136-145); Thyroid Stimulating Hormone 1.63 uIU/mL (0.36-3.74); Total Protein 7.2 g/dL (6.4-8.2); Triglycerides 35 mg/dL (0-150); Vitamin B12 446 pg/mL (193-986)
[2023-08-29 18:11] LABS: Vitamin D 25 Hydroxy 37 ng/mL (30-100)
== END 2023-08-22 09:41 | disposition home or self-care (01) ==
LOC: CHSLAB 09:42
PROVIDERS: PCP Family Medicine; Visit Provider Physician Assistant
DX: Z00.00 Encounter for general adult medical examination without abnormal findings (principal); R73.01 Impaired fasting glucose; R53.83 Other fatigue; F51.04 Psychophysiologic insomnia; E78.00 Pure hypercholesterolemia, unspecified; E55.9 Vitamin D deficiency, unspecified; F41.1 Generalized anxiety disorder
CPT/HCPCS: 36415; 80053; 80061; 81001; 82306; 82607; 82746; 83036; 84443; 85025

== ENCOUNTER 2023-09-16 13:05 | Outpatient (CLI) | payer BC, SELFPAY ==
--- NOTE | ~2023-09-16 | CT_ITS ---
CT of the Abdomen and Pelvis: Indication: Abdominal pain Technique: 2.5 mm axial scans were obtained through the abdomen and pelvis following intravenous adm inistration of 100 cc of Omnipaque 350. Dose reduction technique was used on this scan by utilizing a utomated exposure control and iterative reconstruction technique. The dose-length product (DLP) was 4 10.15 mGy-cm. COMPARISON: 06/30/2023 Findings: Scans through the lung bases are unremarkable. The liver, pancreas, gallbladder, right adrenal gland, and kidneys are within normal limits. Small le ft adrenal nodule stable from prior exam. There is a small wedge-shaped hypodense area in the spleen, indeterminate. There are atherosclerotic calcifications of the aorta. No lymphadenopathy. No bowel obstruction or bowel wall thickening. There is no evidence to suggest acute appendicitis. Images through the pelvis were performed. Urinary bladder unremarkable. No pelvic mass seen. No ascit es. Impression: No acute abnormality. Stable small left adrenal nodule, likely benign. Hypodense splenic lesion, indeterminate, also likely benign. Reviewed, dictated and finalized at location . ATOR TECHNICIAN Impression: No acute abnormality. Stable small left adrenal nodule, likely benign. Hypodense splenic lesion, indeterminate, also likely benign.
== END 2023-09-16 13:06 | disposition home or self-care (01) ==
PROVIDERS: PCP Family Medicine
DX: R10.32 Left lower quadrant pain (principal); D35.02 Benign neoplasm of left adrenal gland
CPT/HCPCS: 74177; Q9967

== ENCOUNTER → 2023-09-16 14:48 | Outpatient (CLI) | payer BC, SELFPAY ==
--- NOTE | ~2023-09-16 | MM_ITS ---
EXAMINATION: MM screening pb BI w althea HISTORY: Screening TECHNIQUE: Craniocaudal and mediolateral oblique 3-D tomosynthesis images were obtained and synthetic 2-D images were generated. CAD analysis was submitted and interpreted. COMPARISON: Comparison to multiple prior studies sequentially, with oldest reviewed study dated 10/2013. BREAST PARENCHYMAL COMPOSITION: The breasts are heterogeneously dense, which may obscure small masses . FINDINGS: There is no evidence of suspicious mass, calcification, or architectural distortion to sugg est malignancy in either breast. There has been no suspicious interval change. IMPRESSION: 1. No mammographic evidence of malignancy. 2. Recommend routine screening mammography in one year. BI-RADS Category 1: Negative Reviewed, dictated and finalized at location A. AL TECH
== END ==
PROVIDERS: PCP Physician Assistant; Visit Provider Physician Assistant
DX: Z12.31 Encounter for screening mammogram for malignant neoplasm of breast (principal)
CPT/HCPCS: 77063; 77067

== ENCOUNTER 2024-06-20 11:12 | Emergency (ER) | payer BC, SELFPAY ==
[2024-06-20 11:12] VITALS: BP 138/81; PULSE 85; RESP 20; TEMP 36.2; O2SAT 96
[2024-06-20 11:30] VITALS: BP 124/72; PULSE 82; RESP 20; O2SAT 95
--- NOTE | 2024-06-20 11:41 | ED.GIBLEED ---
HPI - GI Bleed General Chief complaint: Abdominal Pain Stated complaint: rectal bleeding Time Seen by Provider: 06/20/24 11:41 Source: patient Mode of arrival: ambulatory Limitations: no limitations History of Present Illness HPI Narrative: 58-year-old female with a history of anxiety / depression, migraine, vertigo /dizziness, status post hysterectomy, family history of colon cancer with precancerous polyps had a colonoscopy last year which was negative for malignancy, history of hemorrhoids, IBS presents to the ED with -- a 1 day history of bright red blood per rectum. The stool is formed. Blood is bright red. Blood is present on the wipes. -- Chronic left lower quadrant abdominal pain which started after she had a colonoscopy. No nausea/ vomiting/ diarrhea. No fever or chills MD complaint: blood on toilet paper and blood streaked stool Onset (ago): day(s) ( 1 day) Pain Consistency: intermittent Severity: mild Relieving factors: none Exacerbating factors: none Context: history of GI bleed Associated symptoms: denies other symptoms Related Data Home Medications Medication Instructions Recorded Confirmed cholecalciferol (vitamin D3) 25 1,000 unit PO DAILY 11/15/19 06/20/24 mcg (1,000 unit) capsule melatonin 1 mg tablet 1 mg PO HS 06/04/22 06/20/24 cyclobenzaprine 10 mg tablet 10 mg PO TID PRN Cramps 08/26/23 06/20/24 buspirone 10 mg tablet 5 mg PO BID 06/20/24 06/20/24 Allergies Allergy/AdvReac Type Severity Reaction Status Date / Time insect venom Allergy Unknown Anaphylactic Verified 06/20/24 11:20 Shock gabapentin AdvReac Unknown vision loss Verified 06/20/24 11:20 Review of Systems Review of Systems: All systems reviewed & are unremarkable except as noted in HPI and below Constitutional: Constitutional: Reports as per HPI and Reports no additional constitutional complaints Eyes: Eyes: Reports as per HPI and Reports no additional eye complaints ENT: Reports system reviewed and no additional complaints, except as documented and Reports as per HPI Cardiovascular: Cardiovascular: Reports as per HPI and Reports no additional cardiovascular complaints Respiratory: Respiratory: Reports as per HPI and Reports no additional respiratory complaints Gastrointestinal: Gastrointestinal: Reports as per HPI and Reports no additional gastrointestinal complaints Comments: bright red blood per rectum. She has a history of hemorrhoidal bleeding in the past. Genitourinary: Genitourinary: Reports no additional female genitourinary complaints Comments: Status post hysterectomy Musculoskeletal: Musculoskeletal: Reports no additional musculoskeletal complaints and Reports as per HPI Integumentary/Breasts: Skin/Breast: Reports system reviewed and no additional complaints, except as docu and Reports as per HPI Neurologic: Reports system reviewed and no additional complaints, except as documented and Reports as per HPI Psychiatric: Psychiatric: Reports no additional psychiatric complaints and Reports as per HPI Endocrine: Endocrine: Reports no additional endocrine complaints and Reports as per HPI Hematologic/Lymphatic: Hematologic/Lymphatic: Reports no additional hematologic/lymphatic complaints and Reports as per HPI Allergic/Immunologic: Allergic/Immunologic: Reports no additional allergic/immunologic complaints and Reports as per HPI PMFSH Past Medical History Medical History Anxiety Migraine, unspecified, not intractable, without status migrainosus Throat irritation Trigger finger, right little finger Ulnar neuropathy at elbow of right upper extremity Surgical History Surgical History History of hysterectomy Status post labral repair of shoulder Family History Family History Father Diabetes mellitus Carcinoma of col
[2024-06-20 11:45] VITALS: BP 111/78; PULSE 82; RESP 22; O2SAT 96
--- NOTE | 2024-06-20 11:46 | PC.NURSE ---
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
[2024-06-20 12:00] VITALS: BP 115/79; PULSE 77; RESP 14; O2SAT 94
[2024-06-20 12:27] LABS: Basophils Absolute Auto 0.05 K/mm3 (0.00-0.10); Basophils Percent Auto 0.9 % (0.0-1.0); Eosinophils Absolute Auto 0.14 K/mm3 (0.02-0.50); Eosinophils Percent Auto 2.4 % (1.0-6.0); Hematocrit 42.5 % (35.0-49.0); Hemoglobin 14.2 g/dL (12.0-15.0); Immature Granulocyte Absolute 0.02 K/mm3 (0.00-0.00); Immature Granulocyte Percent A 0.3 % (0.0-0.0); Lymphocytes Percent Auto 25.7 % (18.0-42.0); Mean Corpuscular HGB Conc 33.4 g/dL (32-36); Mean Corpuscular Hemoglobin 30.1 pg (27.0-31.0); Mean Platelet Volume 11.3 fl (9.2-11.8); Monocytes Absolute Auto 0.65 K/mm3 (0.10-0.90); Monocytes Percent Auto 11.1 % (2.0-11.0); Neutrophils Absolute Auto 3.47 K/mm3 (1.70-7.20); Neutrophils Percent Auto 59.6 % (50.0-70.0); Platelet Count Result 221 K/mm3 (150-420); Red Blood Count 4.72 M/mm3 (4.20-5.40); Red Cell Distribution Width 13.2 % (11.6-14.4); White Blood Count 5.8 K/mm3 (4.8-10.8)
[2024-06-20 12:46] LABS: Alanine Aminotransferase 26 U/L (14-59); Albumin Level 3.8 g/dL (3.4-5.0); Alkaline Phosphatase 100 U/L (46-116); Anion Gap 6 mmol/L (4-12); Aspartate Amino Transferase 23 U/L (15-37); Bilirubin,Total 0.5 mg/dL (0.00-1.00); Blood Urea Nitrogen 21 mg/dL (7-18); Calcium 9.6 mg/dL (8.5-10.1); Carbon Dioxide 30 mmol/L (21-32); Chloride 105 mmol/L (98-108); Estimated CRCL calculation 62 ml/min; Estimated Glomerular Filt Rate > 60; Glucose 99 mg/dL (70-99); INR 0.9; Lipase 32 U/L (16-77); Osmolality Calculated 295 mOsm/kg (285-295); Partial Thromboplastin Time 27.1 Sec (23.9-30.70); Potassium 3.8 mmol/L (3.5-5.1); Prothrombin Time 10.4 Seconds (9.50-12.1); Sodium 141 mmol/L (136-145); Total Protein 7.7 g/dL (6.4-8.2)
--- NOTE | 2024-06-20 12:47 | PC.NURSE ---
RN AT BEDSIDE DURING RECTAL EXAM. PT TOLERATED WELL. BLEEDING EXTERNAL HEMORRHOID IS NOTED. NO BLOOD NOTED ON INTERNAL EXAM. PT IS AWARE OF PLAN OF CARE, SIG OTHER AT BEDSIDE. WILL CONTINUE TO MONITOR.
[2024-06-20 12:48] LABS: Appearance Urine Clear (Clear); Color Urine Yellow (Yellow); Specific Grav Ur 1.015 (1.010-1.020)
[2024-06-20 12:49] LABS: Lactic Acid Reflex 0.8 mmol/L (0.4-2.0)
[2024-06-20 12:49] LABS: Bilirubin Urine Negative (Negative); Glucose Urine UA Negative (Negative); Ketones Urine Negative (Negative); Leukocyte Esterase Ur Negative LEU/UL (Negative); Nitrate Urine Negative (Negative); Protein Urine Negative (Negative); Urobilinogen Urine Normal mg/dL (0.2-1.0)
[2024-06-20 12:50] LABS: Add Urine Microscopic? NO; Blood Urine Trace-intact (Negative)
--- NOTE | 2024-06-20 13:20 | PC.NURSE ---
PT IS AWARE OF PLAN OF CARE, DENIES ANY NEEDS OR COMPLAINTS. PT IS AGREEABLE TO DC HOME. WILL CONTINUE TO MONITOR.
[2024-06-20 13:26] VITALS: BP 118/76; PULSE 72; RESP 18; O2SAT 97
== END 2024-06-20 13:26 | disposition home or self-care (01) ==
PROVIDERS: Emergency Provider Internal Medicine Critical Care Medicine; PCP Family Medicine
DX: K64.4 Residual hemorrhoidal skin tags (principal); G89.29 Other chronic pain; R10.9 Unspecified abdominal pain; Z85.038 Personal history of other malignant neoplasm of large intestine; Z87.891 Personal history of nicotine dependence
CPT/HCPCS: 36415; 80053; 81001; 81003; 83605; 83690; 85025; 85610; 85730; 99284

== ENCOUNTER 2024-07-09 14:47 | Outpatient (CLI) | payer BC, SELFPAY ==
--- NOTE | ~2024-07-09 | CT_ITS ---
EXAMINATION: CT lung screening DATE: 07/09/2024 14:59 INDICATION: Nicotine dependence, cigarettes, uncomplicated TECHNIQUE: Computed tomography (CT) of the chest was performed without intravenous contrast. Addition al 3D reconstructions utilizing coronal maximum intensity projection (MIP) were performed. Automated exposure control and iterative reconstruction technique were employed. The dose-length product was 88 .03 mGy-cm. COMPARISON: 06/30/2023 FINDINGS: Minimal dependent atelectasis in bilateral lower lobes. No suspicious pulmonary nodules, pneumonia, p ulmonary edema or pleural effusion. Heart size is normal. Atherosclerotic coronary artery calcificati ons. No pericardial effusion. No pathologically enlarged thoracic lymphadenopathy. Visualized upper a bdomen is unremarkable. Moderate thoracic spondylosis. IMPRESSION: 1. Lung-RADS category 1: Negative. Continue annual screening with noncontrast low-dose chest CT in 12 months. Reviewed, dictated and finalized at location A. IMPRESSION: 1. Lung-RADS category 1: Negative. Continue annual screening with noncontrast l ow-dose chest CT in 12 months.
== END 2024-07-09 14:48 | disposition home or self-care (01) ==
LOC: MICIMG 14:48
PROVIDERS: PCP Family Medicine; Visit Provider Physician Assistant
DX: Z12.2 Encounter for screening for malignant neoplasm of respiratory organs (principal); F17.210 Nicotine dependence, cigarettes, uncomplicated
CPT/HCPCS: 71271

== ENCOUNTER 2024-09-21 14:54 | Outpatient (CLI) | payer BC, SELFPAY ==
--- NOTE | ~2024-09-21 | MM_ITS ---
EXAMINATION: MM screening pb BI w althea HISTORY: Screening TECHNIQUE: Craniocaudal and mediolateral oblique 3-D tomosynthesis images were obtained and synthetic 2-D images were generated. CAD analysis was submitted and interpreted. COMPARISON: Comparison to multiple prior studies sequentially, with oldest reviewed study dated 05/2018. BREAST PARENCHYMAL COMPOSITION: Dense: The breasts are heterogeneously dense, which may obscure small masses FINDINGS: There is no evidence of suspicious mass, calcification, or architectural distortion to sugg est malignancy in either breast. There has been no suspicious interval change. IMPRESSION: 1. No mammographic evidence of malignancy. 2. Recommend routine screening mammography in one year. BI-RADS Category 1: Negative Reviewed, dictated and finalized at location B. SION MERCHANDISE MANAGER
== END 2024-09-21 14:55 | disposition home or self-care (01) ==
PROVIDERS: PCP Family Medicine; Visit Provider Physician Assistant
DX: Z12.31 Encounter for screening mammogram for malignant neoplasm of breast (principal)
CPT/HCPCS: 77063; 77067